=== PATIENT | female | born 1960 | race Native Hawaiian/Other Pacific Islander ===

== ENCOUNTER 2022-08-11 16:33 | Emergency (ER) | payer OTHER ==
[~2022-08-11] VITALS: Ht 162.6 cm; Wt 122.0 kg
[2022-08-11 16:35] VITALS: BP 135/57; TEMP 97.2
[2022-08-11 17:14] LABS: PLATELET COUNT 291 K/uL (152-353)
[2022-08-11 17:22] LABS: POTASSIUM 3.5 mmol/L (3.6-5.2)
[2022-08-11 17:35] LABS: PARTIAL THROMBOPLASTIN TIME 23.6 SECONDS (24.5-33.6)
[2022-08-12] MEDS ORDERED: ZYPREXA ZYDI5 MG PO (08:06)
[2022-08-12] MEDS ORDERED: PANTOPRAZOLE 40MG TA PO (08:07)
[2022-08-12] MEDS ORDERED: ROPINIROLE4 MG PO (08:08)
[2022-08-12] MEDS ORDERED: LEVO0.0218 PO (08:09)
[2022-08-12] MEDS ORDERED: BUSPIRONE30 MG PO (08:10)
[2022-08-12] MEDS ORDERED: HYDR200T3 PO (08:11)
[2022-08-12] MEDS ORDERED: LAMICTAL100 MG PO (08:12)
[2022-08-12] MEDS ORDERED: FURO20TA67 PO (08:13)
[2022-08-12] MEDS ORDERED: TOPAMAX50 MG PO (08:14)
[2022-08-12] MEDS ORDERED: BACLOFEN20 MG PO (08:15)
[2022-08-12] MEDS ORDERED: VENL37.54 PO (08:15)
[2022-08-12] MEDS ORDERED: BENZONATATE200 MG PO (08:16)
[2022-08-12] MEDS ORDERED: CYCL10TA35 PO (08:17)
[2022-08-12] MEDS ORDERED: METOCLOPRAM10 MG PO (08:18)
[2022-08-12] MEDS ORDERED: CARAFATE1 GM PO (08:19)
[2022-08-12] MEDS ORDERED: NORCO PO (08:21)
[2022-08-12] MEDS ORDERED: ONDA4TAB3 PO (08:22)
== END 2022-08-11 19:45 | disposition still patient (30) ==
LOC: ED 16:33
PROVIDERS: Emergency Medicine Emergency Medical Services
DX: Z02.79 Encounter for issue of other medical certificate (principal); R45.6 Violent behavior; R45.1 Restlessness and agitation
CPT/HCPCS: 36415; 80053; 84484; 85027; 85610; 85730; 93005; 96361; 96365; 96372; 99284; J1650; J3370